=== PATIENT | male | born 1955 | race Caucasian/White ===

== ENCOUNTER 2020-04-05 07:44 | Outpatient (CLI) | payer MEDICARE, OTHER, SELFPAY | END 2020-04-05 07:45 | disposition home or self-care (01) | PROVIDERS: PCP Family Medicine Adolescent Medicine; Visit Provider Otolaryngology | DX: H90.3 Sensorineural hearing loss, bilateral (principal) | CPT/HCPCS: 92557; 92567 ==

== ENCOUNTER 2023-01-30 01:11 | Day surgery (SDC) | payer MEDICARE, OTHER, SELFPAY ==
[2023-01-19 14:20] VITALS: BMI 26.7
[2023-01-30 09:59] VITALS: BP 135/64; PULSE 95; RESP 18; TEMP 36.4; O2SAT 96
[2023-01-30] MEDS: LACTATED RINGERS 1,000 ML 150 ML IV CONT (10:10)
--- NOTE | 2023-01-30 10:18 | WPDHPUPDATE1 ---
History and Physical Update Update Date/Time: 01/30/23 10:18 History and Physical has been reviewed, including an updated exam of the patient. There are NO changes in the patient's condition. Risks, benefits, and alternatives have been discussed and questions answered. Patient agrees to proceed with procedure.
--- NOTE | 2023-01-30 10:32 | WPDANESEPPF ---
Anes - Initial Pre Proc Eval Procedure: Operation Date: 01/30/23 11:00 Proposed Procedures p Colonoscopy - Obed Guerrero MD Date/Time: 01/30/23 10:32 Surgeon: Obed Guerrero MD Pre Op Diagnosis: other specified diseases of anus and rectum Patient Data Age: 68 Gender: M Height: 1.8 m Weight: 83.8 kg Last Vital Signs Temp 97.6 F 01/30/23 09:59 Pulse 95 01/30/23 09:59 Resp 18 01/30/23 09:59 BP 135/64 01/30/23 09:59 Pulse Ox 96 01/30/23 09:59 O2 Del Method Room Air 01/30/23 09:59 Allergies Allergy/AdvReac Type Severity Reaction Status Date / Time No Known Allergies Allergy Verified 01/30/23 09:57 Home Medications Medication Instructions Recorded Confirmed Type finasteride 5 mg tablet 5 mg PO DAILY 04/05/22 01/19/23 History meloxicam 15 mg tablet 15 mg PO DAILY 04/05/22 01/19/23 History atorvastatin 20 mg tablet See Rx Instructions .Route 04/10/22 01/19/23 Rx .COMPLEX #90 tabs omeprazole 40 mg capsule,delayed 40 mg PO DAILY #90 caps 06/11/22 01/19/23 Rx release zolpidem 12.5 mg tablet,extended 12.5 mg PO QHS #90 tabs 12/25/22 01/19/23 Rx release,multiphase hydrocortisone 2.5 % topical cream 1 applic RECTAL BID #30 grams 01/22/23 01/30/23 Rx with perineal applicator Patient hx anesthesia problems: none Family hx anesthesia problems: none Results Review: All pre-operative results and documents have been reviewed as part of the pre-operative evaluation. [facility] Past Medical History Medical History (Updated 01/17/23 @ 15:36 by Valeria Aparicio APRN) Anal fissure Family hx of colon cancer Internal hemorrhoids Surgical History Surgical History History of arthroscopy of left knee (2015) Social History Social History Smoking packs per day: 2 Smoking cigarettes per day: 40.0 Years smoked: 20 Smoking pack-years: 40.00 Smoking status: Former smoker Tobacco type: cigarettes Second hand tobacco smoke exposure: No Smoking end date: 04/23/90 Alcohol intake: current Drinks per week: 8 Substance use: never Substance use type: does not use Lack of Transportation: No Lack of Food: Never True Current Housing: I Have Housing Concerned About Future Housing: No Difficulty Paying Gas/Electric Bills: No Difficulty Paying for Meds: No Currently Unemployed: No Education: High School Diploma/GED Difficulty w/ Childcare or Family Care: No Living arrangements: with family Spiritual care concerns: No Anes - Eval Final PreProcedure Day of Procedure 01/30/23 10:32 Patient weight: normal Heart: regular rate and rhythm Lungs: clear to auscultation Airway: Mallampati scale class II Neurological: alert and oriented Last oral intake: >/= 8 hours ASA classification: II Emergent: no Anesthetic plan: proceed Anesthesia type and monitoring: general GIVS and standard monitoring Results Review: All pre-operative results and documents have been reviewed as part of the pre-operative evaluation. Informed Consent: The patient's anesthetic plan and its attendant risks and benefits were discussed with the patient/family/POA. Questions were solicited and answers provided to the satisfaction of the patient/family/POA.
[2023-01-30 11:07] VITALS: BP 103/63; PULSE 80; RESP 21; O2SAT 96
[2023-01-30 11:17] VITALS: BP 113/71; PULSE 70; RESP 19; O2SAT 97
[2023-01-30 11:27] VITALS: BP 132/78; PULSE 71; RESP 22; O2SAT 98
== END 2023-01-30 11:38 | disposition home or self-care (01) ==
PROVIDERS: PCP Family Medicine Adolescent Medicine; Visit Provider Internal Medicine Gastroenterology
PROC: 0DJD8ZZ Inspection of Lower Intestinal Tract, Via Natural or Artificial Opening Endoscopic (ICD-10-PCS; CPT 45378; principal; 2023-01-30 11:00)
DX: K62.89 Other specified diseases of anus and rectum (principal); K64.8 Other hemorrhoids; K59.00 Constipation, unspecified; Z87.891 Personal history of nicotine dependence; Z80.0 Family history of malignant neoplasm of digestive organs
CPT/HCPCS: 45378; J7120

== ENCOUNTER 2024-07-28 16:34 | Emergency (ER) | payer MEDICARE, OTHER, SELFPAY ==
--- NOTE | ~2024-07-28 | CT_ITS ---
History: Blunt trauma PROCEDURE: CT head without contrast. COMPARISON: None TECHNIQUE: Axial imaging of the head performed from the skull base to the vertex without IV contrast. Sagittal a nd coronal reformations obtained. DLP: 605 mGy-cm FINDINGS: The ventricles are normal in size, shape and position. There is no mass, mass effect or midline shift. There is no abnormal extra-axial fluid collection or intracranial hemorrhage. Visualized paranasal sinuses are clear. The mastoid air cells are well aerated. No acute displaced fractures within the overlying cranium. Impression: No acute intracranial hemorrhage or suspicious mass effect. Reviewed, dictated and finalized at location A. Impression: No acute intracranial hemorrhage or suspicious mass effect.
[2024-07-28 16:48] VITALS: BP 159/80; PULSE 73; RESP 16; TEMP 36.7; O2SAT 98
[2024-07-28] MEDS: LIDO 1%/EPINEPHRINE 1:100,000 20 ML VIAL 3 ML INFILTRATE (17:57)
[2024-07-28] MEDS: TETANUS,DIPHTHERIA,AC PERTUSSIS ADULT (0.5 ML) BOOSTRIX IM (17:58)
--- NOTE | 2024-07-28 17:58 | ED_ITS ---
HPI - Head Injury General Chief complaint: Head Injury Stated complaint: Head laceration SP fall-No LOC Time Seen by Provider: 07/28/24 17:09 History of Present Illness HPI Narrative: Patient is a 6-year-old male who presents ER with a laceration to his head. Tripped and fell over his lawnmower. No LOC. no blood thinning agents. No numbness or tingling to the arms or legs. Unknown last tetanus. Related Data Home Medications ?Medication ?Instructions ?Recorded ?Confirmed ?Last Taken ?Type finasteride 5 mg tablet 5 mg PO DAILY 04/05/22 07/24/24 01/29/23 History meloxicam 15 mg tablet 15 mg PO DAILY 04/05/22 07/24/24 01/29/23 History amoxicillin 500 mg capsule 500 mg PO PRN 07/24/24 07/24/24 Unknown History Allergies Allergy/AdvReac Type Severity Reaction Status Date / Time No Known Allergies Allergy Verified 07/24/24 08:39 Review of Systems Review of Systems: All systems reviewed & are unremarkable except as noted in HPI and below Constitutional: Constitutional: Reports no additional constitutional complaints ENT: Reports system reviewed and no additional complaints, except as documented Cardiovascular: Cardiovascular: Reports no additional cardiovascular complaints Respiratory: Respiratory: Reports no additional respiratory complaints Neurologic: Reports system reviewed and no additional complaints, except as documented [facility] Past Medical History Medical History (Updated 07/28/24 @ 17:59 by Ford Escoto MD) Family hx of colon cancer Anal fissure Internal hemorrhoids Surgical History Surgical History History of arthroscopy of left knee (2015) Social History Social History Smoking packs per day: 2 Smoking cigarettes per day: 40.0 Years smoked: 20 Smoking pack-years: 40.00 Smoking status: Former smoker Tobacco type: cigarettes Second hand tobacco smoke exposure: No Smoking end date: 04/23/90 Alcohol intake: current Drinks per week: 8 Substance use: never Substance use type: does not use Lack of Transportation: No Lack of Food: Never True Current Housing: I Have Housing Concerned About Future Housing: No Difficulty Paying Gas/Electric Bills: No Difficulty Paying for Meds: No Currently Unemployed: No Education: High School Diploma/GED Difficulty w/ Childcare or Family Care: No Living arrangements: with family Spiritual care concerns: No Exam Narrative: GENERAL: Well-appearing, well-nourished, and in no acute distress. HEAD: Normocephalic, atraumatic. 1.5 cm laceration lateral of the left eyebrow. EYES: PERRL and EOMI. ENT: Mucous membranes moist. CHEST: Clear to auscultation. No respiratory distress. HEART: Regular rate and rhythm. Normal peripheral pulses. EXTREMITIES: Normal range of motion. No edema. NEURO: No focal deficits. Alert and oriented x3. PSYCH: Normal mood and affect. Course Course Emergency Course: Wound repaired. CT negative for bleed. Tetanus updated. Discharge. Vital Signs Vital signs: Vital Signs Temperature 98.1 F 07/28/24 16:48 Pulse Rate 73 07/28/24 16:48 Respiratory Rate 16 07/28/24 16:48 Blood Pressure 159/80 H 07/28/24 16:48 Pulse Oximetry 98 07/28/24 16:48 Temperature 98.1 F 07/28/24 16:48 Pulse Rate 73 07/28/24 16:48 Respiratory Rate 16 07/28/24 16:48 Blood Pressure 159/80 H 07/28/24 16:48 Pulse Oximetry 98 07/28/24 16:48 Procedures Laceration Laceration 1: Date: 07/28/24 Time: 17:50 Site: face Side (If applicable): left Size (cm): 1.5 Description: linear Depth: simple, single layer Local Anesthetic: lidocaine 1% and with epi Amount of anesthesia used (mL): 2 Pre-repair: irrigated ====== Skin Level ====== Skin layer closed with: nylon Size (cm): 5-0 Number of sutures: 3 Technique: simple, interrupted ====== Subcutaneous Layer ====== ====== Muscle Layer ====== ====== Tendon Layer ====== Discharge Plan Discharge Clinical Impression: Eyebrow laceration Patient Disposition: Home Condition: Stable Instructions: Care For Your Stitches (ED), Laceration (ED) Additional Instructions: Return the ER if you have recurrent injury, your wound is infected, or you have additional concerns. Remove your sutures in 5 days. Your tetanus shot was updated. Patient Language: Macedonian Prescriptions: No Action finasteride 5 mg tablet 5 mg PO DAILY meloxicam 15 mg tablet 15 mg PO DAILY amoxicillin 500 mg capsule 500 mg PO PRN Rx Instructions: take 4 pills 1hr prior to dental appt hydrocortisone acetate [Anusol-HC] 25 mg suppository 25 mg RECTAL BID Qty: 12 1RF zolpidem 12.5 mg tablet,ext release multiphase 12.5 mg PO QHS Qty: 90 1RF Patient Comments: takes prn only omeprazole 40 mg capsule,delayed release(DR/EC) 40 mg PO DAILY Qty: 90 1RF atorvastatin 20 mg tablet See Rx Instructions .ROUTE .COMPLEX Qty: 90 2RF Dose Instruction: TAKE 1 TABLET BY MOUTH EVERY DAY Rx Instructions: TAKE 1 TABLET BY MOUTH EVERY DAY Follow-up/Referrals: Art Randle MD [Primary Care Provider] - 1 Week
--- OUTSIDE RECORDS SUMMARY | 2024-07-28 18:04 | XMS_ITS | Clinical Summary ---
Author Organization [facility] Address [address] [place] [address] Care Team Providers Care Structural Steel Erection Supervisor Name Role Phone Art Randle MD Primary Care Provider + Art Randle MD Unavailable [phone] Romeo Nunes MD Unavailable [phone] Source Comments [facility],non-owned Affiliates and Associated Physician Practices is amultiple site organization consisting of ambulatory clinics and hospital sitesin [place], [place], [place] and [place]. This disclosure is being madepursuant to the Care Everywhere program and may not contain all information available regarding this patient. Last updated 18.[facility] Allergies No known active allergies Medications * Be aware that medications may not be up to date on this document. Alwaysverify current medications with the patient. Medication Sig Dispensed Refills Start Date End Date Status atorvastatin (Lipitor) 20 MG tabletIndications:H yperlipidemia Take 1 (one) tablet by mouth once daily Reasons: High Amount of Fats in the Blood 04/21/2023 Active finasteride (Proscar) 5 MG tabletIndications:B enign Prostatic Hypertrophy Reasons: Benign Enlargement of Prostate 06/03/2023 Active zolpidem CR (Ambien Cr) 12.5 MG tabletIndications:I nsomnia Take 1 (one) tablet by mouth nightly as needed Reasons: Trouble Sleeping 01/07/2023 Active triamcinolone acetonide (Kenalog) 0.1 % creamIndications:De rmatitis APPLY TO AFFECTED AREA DIRECTED TWICE A DAY 03/12/2023 Active cetirizine (ZyrTEC) 10 MG tabletIndications:S easonal Allergic Rhinitis Take 1 (one) tablet by mouth once daily Take at night Reasons: Hayfever Active amoxicillin (Amoxil) 500 MG capsule TAKE 4 PILLS 1HR PRIOR TO DENTAL APPOINTMENT 12/18/2023 Active acetaminophen (Tylenol) 500 MG capsule Take 2 (two) capsules by mouth 3 times daily Take for ten days then as needed. 02/27/2024 Active aspirin (Aspirin) 81 MG chew tablet Chew and Swallow 1 (one) tablet by mouth 2 times daily for 42 days for blood clot prevention. 84 tablet 02/27/2024 Active oxyCODONE, immediate release, (Roxicodone) 10 MG tabletIndications:P ostoperative pain Take 0.5 (one-half) tablet to 1 (one) tablet by mouth every 4 hours as needed for Pain (PAIN) 42 tablet 02/28/2024 Active omeprazole (PriLOSEC) 20 MG capsule Take 1 (one) capsule by mouth daily before breakfast for 42 days 02/28/2024 Active meloxicam (Mobic) 15 MG tablet TAKE 1 TABLET BY MOUTH EVERY DAY 30 tablet 5 05/15/2024 Active Active Problems Problem Noted Date Diagnosed Date Arthritis of knee 07/09/2023 Primary osteoarthritis of left knee 01/12/2021 Sciatica of right side 01/12/2021 Acute medial meniscal tear, right, initial encou nter 11/04/2020 Overview (01/12/2021): Last Assessment & Plan: We discussed the risks, benefits and alternatives. There are only 3 things to do for meniscal tears. Nothing, see if it gets better on its own. Conservative treatment of nonsteroidal anti-inflammatories, physical therapy, steroid injection, activity modification, TENS unit and bracing. Finally, diagnostic and operative arthroscopy with repair or partial meniscectomy. Start meloxicam. Physician directed exercises given If no significant improvement consider MRI Patient would like to avoid steroids Encounters Date Type Department Care Team Description 05/14/2024 Refill [facility] [id number] [facility], [address] [phone] Romeo Nunes MD Refill Request from Last 3 Months Social History Tobacco Use Types Packs/Day Years Used Date Smoking Tobacco: Former Cigarettes Smokeless Tobacco: Never Tobacco Cessation:Counseling Given: Not Answered Alcohol Use Standard Drinks/Week Comments Yes 0 (1 standard drink = 0.6 oz pur e alcohol) 8 drinks over a week period OASIS D0700: Social Isolation Answer Da te Recorded Frequency of experiencing loneliness or isolatio n Never 07/26/2023 OASIS A1250: Transportation Answer Date Recorded Lack of Transportation (Medical) No 07/26/2023 Lack of Transportation (Non-Medical) No 07/26/2023 Patient Unable or Declines to Respond No 07/26/2023 OASIS B1300: Health Literacy Answer Jonah e Recorded Frequency of needing help to read materials from doctor or pharmacy Never 07/26/2023 AUDIT-C Answer Date Recorded Q1: How often do you have a drink containing alcohol? Monthly or less 02/27/2024 Q2: How many drinks containi ng alcohol do you have on a typical day when you are drinking? Patient does not drink Q3: How often do you have si x or more drinks on one occasion? Never 02/27/2024 Overall Financial Resource Strain (CARDIA) Answe r Date Recorded How hard is it for you to pa y for the very basics like food, housing, medical care, and heating? Not hard at all 02/27/2024 PHQ-2 Answer Date Recorded Patient Health Questionnaire-2 Score 0 04/01/2024 [facility] - Occupational Stress Questionnaire Answer Date Recorded Do you feel stress - tense, restless, nervous, or anxious, or unable to sleep at night because your mind is troubled all the time - these days? Not at all 02/27/2024 Hunger Vital Sign Answer Date Recorded Within the past 12 months, y ou worried that your food would run out before you got the money to buy more. Never true 02/27/20 24 Within the past 12 months, t he food you bought just didn't last and you didn't have money to get more. Never true 02/27/2024 PRAPARE - Transportation Answer Date Re corded In the past 12 months, has l ack of transportation kept you from medical appointments or from getting medications? No 09/2023 In the past 12 months, has l ack of transportation kept you from meetings, work, or from getting things needed for daily living? No 02/27/2024 Housing Stability Vital Sign Answer Jonah e Recorded In the last 12 months, was t here a time when you were not able to pay the mortgage or rent on time? No 02/27/2024 In the past 12 months, how m any times have you moved where you were living? 1 02/27/2024 At any time in the [facility], were you homeless or living in a custodial (including now)? No 02/27/2024 Sex and Gender Information Value Date Recorded Sex Assigned at Male 06/07/2023 12:53 PM PLANT OPERATIONS COORDINATOR Gender Identity Not on file Sexual Orientation Not on file Last Filed Vital Signs Vital Sign Reading Time Taken Comments Blood Pressure 147/55 02/28/2024 8:40 AM PLANT OPERATIONS COORDINATOR Pulse 62 02/28/2024 8:40 AM PLANT OPERATIONS COORDINATOR Temperature 36.6 C (97.9 F) 02/28/2024 7:55 AM PLANT OPERATIONS COORDINATOR Respiratory Rate 18 02/28/2024 3:49 AM PLANT OPERATIONS COORDINATOR Oxygen Saturation 100% 02/28/2024 8:40 AM PLANT OPERATIONS COORDINATOR Inhaled Oxygen Concentration - - Weight 84.3 kg (185 lb 12.8 oz) 02/27/2024 6:00 AM PLANT OPERATIONS COORDINATOR Height 180.3 cm (5' 11 ) 02/27/2024 6:00 AM PLANT OPERATIONS COORDINATOR Body Mass Index 25.91 02/27/2024 6:00 AM PLANT OPERATIONS COORDINATOR Plan of Treatment Health Maintenance Due Date Last Done Comments COLOGUARD (AGES 45-75) - COL ON CA SCREENING 1954 COLON MONITORING 1954 COLONOSCOPY - COLON CA SCREENING 1954 CT COLONOGRAPHY - COLON CA SCREENING 1954 Colorectal Cancer Screening 1954 FIT - COLON CA SCREENING 1954 FLEX SIG - COLON CA SCREENING 1954 MEDICARE AWV 12 MONTHS 1954 HEPATITIS C SCREENING 01/06/1972 DTAP/TDAP/TD VACCINES (1 - Tdap) 1973 PNEUMOCOCCAL VACCINE 50+ (1 of 1 - PCV) 01/11/2004 ZOSTER VACCINE (1 of 2) 01/11/2004 AAA SCREENING 2019 COVID-19 VACCINE ( - 2023-2 5 season) 2023 DEPRESSION SCREENING 04/23/2024 11/20/2023 INFLUENZA VACCINE (Season Ended) 2024 SCREENING FOR DIABETES 01/23/2027 01/24/2024 Respiratory Syncytial Virus (RSV) Vaccine Pt: or over 60 yrs (1 - 1-dose 75+ series) 2029 HEPATITIS B VACCINE Aged Out No longe r eligible based on patient's age to complete this topic HIB VACCINE Aged Out No longer eligi ble based on patient's age to complete this topic HPV VACCINE Aged Out No longer eligi ble based on patient's age to complete this topic MENINGOCOCCAL (Group B) VACC INE SHARED DECISION-MAKING Aged Out No longer eligibl e based on patient's age to complete this topic MENINGOCOCCAL GROUPS A/C/Y/W VACCINE Aged Out No longer eligible b ased on patient's age to complete this topic Medical Devices Implanted Type Area Guest Service Team Leader Device Identifier Shelf Expiration Date Model / Serial / Lot Cmnt Bone Plc R 40gm Grn Implanted:Qty: 1 on 07/09/2023 by Romeo Nunes MD at [facility] Right: Knee [employer] 11/20/2025 [id number] / / [id number] Cmnt Bone Plc R 40gm Grn Implanted:Qty: 1 on 07/09/2023 by Romeo Nunes MD at [facility] Right: Knee [employer] 11/20/2025 [id number] / / [id number] Tray Tib 79mm Kn Cocr I Beam Implanted:Qty: 1 on 07/09/2023 by Romeo Nunes MD at [facility] Right: Knee [employer] 04/14/2033 [id number] / / [id number] Cmpnt Fem Kn Rt Cr Cmnt Prm Vngrd Intlk 70mm Implanted:Qty: 1 on 07/09/2023 by Romeo Nunes MD at [facility] Right: Knee [employer] 04/03/2033 [id number] / / [id number] Cmpnt Ptlr Std 31mm 3 Pg Kn Ser A Implanted:Qty: 1 on 07/09/2023 by Romeo Nunes MD at [facility] Right: Knee [employer] 04/03/2028 [id number] / / [id number] Brng [id number] Vngrd Arcm Kn Ant Stab Implanted:Qty: 1 on 07/09/2023 by Romeo Nunes MD at [facility] Right: Knee [employer] 04/04/2028 [id number] / / [id number] Cmpnt Ptlr Std 31mm 3 Pg Kn Ser A Implanted:Qty: 1 on 02/27/2024 by Romeo Nunes MD at [facility] Left: Knee [employer] 01/04/2028 [id number] / / [id number] Brng [id number] Vngrd Vivacit-E Kn Ant Stab Implanted:Qty: 1 on 02/27/2024 by Romeo Nunes MD at [facility] Left: Knee [employer] 08/14/2028 [id number] / / [id number] Cmnt Bone Plc R 40gm Grn Implanted:Qty: 2 on 02/27/2024 by Romeo Nunes MD at [facility] Left: Knee [employer] 04/22/2026 [id number] / / [id number] Cmpnt Fem Kn Lt Cr Cmnt Prm Vngrd Intlk 72.5 Mm Implanted:Qty: 1 on 02/27/2024 by Romeo Nunes MD at [facility] Left: Knee [employer] 11/11/2033 [id number] / / [id number] Tray Tib 79mm Kn Cocr I Beam Implanted:Qty: 1 on 02/27/2024 by Romeo Nunes MD at [facility] Left: Knee [employer] 01/02/2034 [id number] / / [id number] Procedures Procedure Name Priority Date/Time Associated Diagnosis Comments COMPREHENSIVE METABOLIC PANEL STAT 01/24/2024 8:30 AM CDT Preoperative examination from Last 3 Months or Most Recently Relevant to Health Maintenance Results * (ABNORMAL) COMPREHENSIVE METABOLIC PANEL (01/24/2024 8:30 AM CDT) [facility] Glucose 97 70 - 99 mg/dL 01/24/2024 8:59 AM CDT [facility] Sodium 134(L) 136 - 145 mmol/L 01/24/2024 8:59 AM CDT [facility] Potassium 4.1 3.5 - 5.1 mmol/L 01/24/2024 8:59 AM CDT [facility] Chloride 107 98 - 107 mmol/L 01/24/2024 8:59 AM CDT [facility] CO2 26 22 - 29 mmol/L 01/24/2024 8:59 AM CDT [facility] Calcium 9.4 8.4 - 10.4 mg/dL 01/24/2024 8:59 AM CDT [facility] Anion Gap 1(L) 6 - 16 mmol/L 01/24/2024 8:59 AM CDT [facility] BUN 13 7 - 26 mg/dL 01/24/2024 8:59 AM CDT [facility] Creatinine 0.87 0.72 - 1.25 mg/dL 01/24/2024 8:59 AM CDT [facility] Alkaline Phosphatase 53 40 - 150 U/L 01/24/2024 8:59 AM CDT [facility] ALT 17 0 - 55 U/L 01/24/2024 8:59 AM CDT [facility] AST 18 5 - 34 U/L 01/24/2024 8:59 AM CDT [facility] Protein Total 6.8 6.4 - 8.3 gm/dL 01/24/2024 8:59 AM CDT [facility] Albumin 3.8 3.4 - 5.0 gm/dL 01/24/2024 8:59 AM CDT [facility] Bilirubin Total 1.2 0.2 - 1.2 mg/dL 01/24/2024 8:59 AM CDT [facility] eGFR by CKD-EPI >90 >=90 mL/min/1.7 3 m2 01/24/2024 8:59 AM CDT [facility] Blood BLOOD SPECIMEN / Unknown Venipuncture / Unknown 01/24/2024 8:30 AM CDT 01/24/2024 8:34 AM CDT Shayla Almanzar CAR CLERK PULLMAN-PUBLIC HEALTH DIRECTOR LAB - CHEMISTRY O RDERABLES [facility] [address] [place] [address] from Last 3 Months or Most Recently Relevant to Health Maintenance Advance Directives * Full Code (Latest Code Status on File) Date Activated Date Inactivated Comments 02/27/2024 9:44 AM 02/28/2024 12:58 PM * Full Code Date Activated Date Inactivated Comments 07/11/2023 10:37 AM 02/27/2024 5:29 AM To update t he patient's code status, place a code status order. Do not modify or discontinue any currently active code status orders. * Full Code Date Activated Date Inactivated Comments 07/09/2023 12:23 PM 07/10/2023 12:52 PM Care Teams Structural Steel Erection Supervisor Relationship Specialty Start Date End Date Art Randle MD [address] [address] PCP - General 01/21/18 Art Randle MD [address] [facility] [address] [place] [address] Family Medicine 01/21/18 [place] [address] [facility] [address] [place] [address] Orthopedic Surgery 05/15/16
--- OUTSIDE RECORDS SUMMARY | 2024-07-28 18:04 | XMS_ITS | Encounter Summary ---
Author Organization [facility] Facility Care Team Providers Care Wound Care Specialist Name Role Phone Art Randle MD Primary Care Prov ider Encounter Details Date Type Department Care Team (Latest Contact Info) Description 01/19/2016 Orders Only [facility] ProviderAjit MD [address] [place] [id number] Social History Tobacco Use Types Packs/Day Years Used Date Smoking Tobacco: Former Cigarettes Q uit: 04/23/1992 Alcohol Use Standard Drinks/Week Comments Yes 0 (1 standard drink = 0.6 oz pur e alcohol) Sex and Gender Information Value Date Recorded Sex Assigned at Not on file Legal Sex 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 Historical Provider Final Res ult documented in this encounter Visit Diagnoses Not on filedocumented in this encounter Care Teams Wound Care Specialist Relationship Specialty Start Date End Date Art Randle MD [address] [place] [address] PCP - General 09/18/12 documented as of this encounter
--- OUTSIDE RECORDS SUMMARY | 2024-07-28 18:04 | XMS_ITS | Encounter Summary ---
Author Organization [facility] Address [address] [place] [address] Care Team Providers Care Clinical Admissions Manager Name Role Phone Art Randle MD Primary Care Provider + Art Randle MD Unavailable [phone] Romeo Nunes MD Unavailable [phone] Encounter Details Date Type Department Care Team (Late st Contact Info) Description 12/19/2022 Lab Requisition [facility] - DermPath Lab [address] [facility], [place] [address] Ester Collazo DO [address] [facility] 3 [place] [address] Social History Tobacco Use Types Packs/Day Years Used Date Smoking Tobacco: Never Assessed Sex and Gender Information Value Date Recorded Sex Assigned at Male 06/07/2023 12:53 PM KAIAKO KURA TUARUA Gender Identity Not on file Sexual Orientation Not on file documented as of this encounter Plan of Treatment Not on file documented as of this encounter Procedures Procedure Name Priority Date/Time Associated Diagnosis Comments DERMATOPATHOLOGY Routine 12/19/2022 8:15 AM CDT documented in this encounter Results * DERMATOPATHOLOGY (12/19/2022 8:15 AM CDT) Case Report Dermatopathology Report Case: [id number] Authorizing Provider: Ester Collazo DO Collected: 12/19/2022 08:15 AM Ordering Location: [facility] DermPath Lab Received: 12/19/2022 12:48 PM Pathologist: Brigitte Mead MD Specimen: Skin, right cheek 12:39 PM CDT DERMATOPATHOLOGY LABORATORY Final Diagnosis Specimen A. SKIN, right cheek: SQUAMOUS CELL CARCINOMA, WELL DIFFERENTIATED (C44.329) 12:39 PM CDT DERMATOPATHOLOGY LABORATORY Clinical History R/O NMSC 12:39 PM CDT DERMATOPATHOLOGY LABORATORY Gross Description Specimen A: Received is one formalin filled container labeled with the patient's name and designated right cheek. The specimen consists of a shave biopsy measuring 3x3x1 mm. Jar 0. 12:39 PM CDT DERMATOPATHOLOGY LABORATORY Microscopic Description Specimen A. SKIN, right cheek: Arising in the epidermis and extending into the dermis there are irregularly shaped aggregates of keratinocytes showing evidence of premature cornification. 12:39 PM CDT DERMATOPATHOLOGY LABORATORY Disclaimer An external and internal positive and negative controls are appropriate for the histochemical, immunohistochemical and immunofluorescence stain(s) in this case (if any), except where stated explicitly. The performance characteristics of the stain(s) cited in this report were developed and its performance characteristic determined by the Dermatopathology Laboratory at [facility], directed by Dr. Mari Cartagena. These tests need not be, and therefore are not, approved by the [place] Food and Drug Administration. The tests are used for clinical purposes. Billing Codes Specimen Charges Stain Charges 00177 1 12:39 PM CDT DERMATOPATHOLOGY LABORATORY Embedded Images 12:39 PM CDT DERMATOPATHOLOGY LABORATORY Pathology/Cytolo gy TISSUE SPECIMEN FROM SKIN / Unknown 12/19/2022 8:15 AM CDT 12/19/2022 12:48 PM CDT Ester Collazo DO LAB - PATHOLOGY/C YTOLOGY ORDERABLES DERMATOPATHOLOGY LABORATORY [facility] - Department of Dermatology [address], [address] [phone] documented in this encounter Visit Diagnoses Not on filedocumented in this encounter Care Teams Clinical Admissions Manager Relationship Specialty Start Date End Date Art Randle MD [address] [address] PCP - General 01/21/18 Art Randle MD [address] [address] Family Medicine 01/21/18 [place] [address] [facility] [address] [place] [address] Orthopedic Surgery 05/15/16 documented as of this encounter
--- OUTSIDE RECORDS SUMMARY | 2024-07-28 18:04 | XMS_ITS | Referral Summary ---
Author Organization [facility] Address [address] [place] [address] Care Team Providers Care Inspector Packer Glass Container Name Role Phone Art Randle MD Primary Care Prov ider Allergies No known active allergies Medications dutasteride (AVODART) 0.5 mg capsule Take 0.5 mg by mouth daily 0 Active rosuvastatin (CRESTOR) 10 mg tablet TK 1 T PO QD 0 Active acetaminophen ER (Tylenol Arthritis Pain) 650 mg 8 hr tablet Rx: Tylenol Arthritis Pain Active methylPREDNISol one (Medrol, Lazaro,) 4 mg Dosepack Take as directed on package 1 packet 0 Active Active Problems Problem Noted Date Diagnosed Date Primary osteoarthritis of left knee 01/20/2020 Assessment & Plan (01/20/2020 9:12 PM CDT): We discussed the risks, benefits and alternatives of treatment options for osteoarthritis of the knee. From least invasive to most invasive: The only thing to slow the progression of osteoarthritis is weight loss. For every pound lost 4 to 6 pounds of stress is relieved from the knee. Formal physical therapy to help with flexion, extension, mobility and strength. Unloading braces to unload the affected side. The possibility of TENs unit to control pain and swelling. Nonsteroidal anti-inflammatories with the potential of cardiac and GI upset. Steroid and Visco supplement injection. And eventual total knee arthroplasty. After going over the risks, benefits and alternatives patient wants to proceed with Monovisc injection today as a gave him significant relief over the last 2 years. We did discussed the fact that it probably will not last that long as arthritis is a progressive disease. Follow-up as needed. Patient understands that I will not be year after March 23 and will call to find replacement physician when needed. BMI 27.0-27.9,adult 01/20/2020 Assessment & Plan (01/20/2020 9:13 PM CDT): We discussed the adverse effects of extra weight on osteoarthritis. The only thing proven to slow the progression of osteoarthritis as weight loss. Every 1 lb lost, relieves 4-6 lb of stress across the knee. Continue weight loss through diet and exercise. Consider low carbohydrate diet. Abnormal cardiovascular stress test 09/18/2012 Overview (07/26/2016): Abnormal stress test Acute coronary syndrome 09/18/2012 Overview (07/28/2016): ACS (acute coronary syndrome) Pure hypercholesterolemia 09/18/2012 Overview (07/28/2016): PURE HYPERCHOLESTEROLEM Precordial pain 09/18/2012 Overview (07/28/2016): PRECORDIAL PAIN Social History Tobacco Use Types Packs/Day Years Used Date Smoking Tobacco: Former Cigarettes Q uit: 04/23/1992 Alcohol Use Standard Drinks/Week Comments Yes 0 (1 standard drink = 0.6 oz pur e alcohol) Personal Safety Answer Date Recorded Getting School Help Needed Not on file 07/06 Sex and Gender Information Value Date Recorded Sex Assigned at Not on file 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 Gender Identity Not on file Sexual Orientation Not on file Last Filed Vital Signs Vital Sign Reading Time Taken Comments Blood Pressure 128/72 01/20/2016 9:27 AM CDT Pulse 55 01/20/2016 9:27 AM CDT Temperature 36.4 C (97.6 F) 01/20/2016 9:27 AM CDT Respiratory Rate - - Oxygen Saturation 99% 01/20/2016 9:27 AM CDT Inhaled Oxygen Concentration - - Weight 90.3 kg (199 lb) 01/19/2020 9:39 AM CDT Height 180.3 cm (5' 11 ) 01/19/2020 9:39 AM CDT Body Mass Index 27.75 01/19/2020 9:39 AM CDT Plan of Treatment Not on file Insurance MEDICARE [employer] [facility] MEDICARE Care Teams Inspector Packer Glass Container Relationship Specialty Start Date End Date Art Randle MD [address] [place] [address] PCP - General 09/18/12
--- OUTSIDE RECORDS SUMMARY | 2024-07-28 18:04 | XMS_ITS ---
Author Name JerArt ventura Address [address] [facility] [address] [place] [address] Phone [phone] [facility] [place] Address [address] [place] [address] Phone [phone] Care Team Providers Care Salesperson Automobiles Name Role Phone Art Randle Unavailable Romeo Nunes Unavailable Functional Status No Results Mental Status No Results Allergies and Intolerances Name Onset Date Reaction Severity No Known Allergies (Allergy) SunFeb 27 13:08:00 EST 2023 Encounters Program Name Primary Diagnosis Admission Date/Time Dis charge Date/Time Home Care SunFeb 27 19:00 :00 2023Mar 17 18:59:00 EST 2023 Medications Medication Directions Start Date End Date acetaminophen 500 mg tablet 2 TAB TABLET Oral Every 8 Hours EVERY 8 HRS X 10 DAYS, THEN PRN MILD PAIN SunFeb 28 01:00:00 EST 2023Mar 17:00:00 EST 2023 omeprazole 40 mg capsule,delayed release 1 TAB CAPSULE,DELAYED RELEASE (ENTERIC COATED) Oral Every 1 Day SunFeb 28:00:00 2023Mar 17:00:00 EST 2023 Aspir-Low 81 mg tablet,delayed release 1 TAB TABLET, DELAYED RELEASE (ENTERIC COATED) Oral 2 Times Daily for 42 Days SunFeb 28:00:00 2023Mar 17:00:00 EST 2023 atorvastatin 20 mg tablet 1 TAB TABLET O ral Every 1 Day SunFeb 28:00:00 2023Mar 17 01:00:00 EST 2023 cetirizine 10 mg tablet 1 TAB TABLET Ora l Every 1 Day SunFeb 28:00:00 2023Mar 17 01:00:00 EST 2023 finasteride 5 mg tablet 1 TAB TABLET Ora l Every 1 Day SunFeb 28 01:00:00 EST 2023Mar 17 01:00:00 EST 2023 meloxicam 15 mg tablet 1 TAB TABLET Oral Every 1 Day SunFeb 28:00:00 EST 2023Mar 17 01:00:00 EST 2023 zolpidem ER 12.5 mg tablet,extended release,multiphase 1 TAB TABLET, EXTENDED RELEASE MULTIPHASE Oral PRN Hour Of Sleep PRN INSOMNIA SunFeb 28:00:00 EST 2023Mar 17 01:00:00 EST 2023 Miralax 17 gram oral powder packet 17 GRAM POWDER IN PACKET (EA) Oral PRN Every 1 Day PRN CONSTIPATION SunFeb 28:00:00 EST 2023Mar 17:00:00 EST 2023 oxyCODONE 10 mg tablet 0.5- 1 TAB TABLET Oral PRN Every 4 Hours PRN MODERATE OR SEVERE PAIN SunFeb 28 01:00:00 EST 2023Mar 17 01:00:00 EST 2023 Problems Active Concerns * Aftercare following joint replacement surgery* Code: * Start Date: SunFeb 27 00:00:00 EST 2023 * End Date: * Text: * Personal history of nicotine dependence* Code: * Start Date: SunFeb 28 00:00:00 EST 2023 * End Date: * Text: * 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 (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 therapy* Code: * Start Date: SunFeb 28 00:00:00 EST 2023 * End Date: * Text: * retirement (current) use of aspirin* Code: * Start Date: SunFeb 28 00:00:00 EST 2023 * End Date: * Text: * Need for assistance with personal care* Code: * Start Date: SunFeb 28 00:00:00 EST 2023 * End Date: * Text: * Other reduced mobility* Code: * Start Date: SunFeb 28 00:00:00 EST 2023 * End Date: * Text: * Allergic rhinitis due to pollen* Code: * Start Date: SunFeb 28 00:00:00 EST 2023 * End Date: * Text: * Gastro-esophageal reflux disease without esophagitis* Code: * Start Date: SunFeb 28 00:00:00 EST 2023 * End Date: * Text: * Benign prostatic hyperplasia without lower urinary tract symptoms* Code: * Start Date: SunFeb 28 00:00:00 2023 * End Date: * Text: * Hyperlipidemia, unspecified* Code: * Start Date: SunFeb 28 00:00:00 2023 * End Date: * Text: * Presence of left artificial knee joint* Code: * Start Date: SunFeb 28 00:00:00 2023 * End Date: * Text: Reason for Referral
--- OUTSIDE RECORDS SUMMARY | 2024-07-28 18:04 | XMS_ITS | Continuity of Care Document ---
Author Organization [facility] Address [address] [place] [address] Phone Care Team Providers Care Wool Hat Finisher Name Role Phone Ashby OD, Obed Unavailable Unavailable Procedures Procedure Date Eye Exam & Treatment Refraction Advance Directives Directive Yes / No Effective Date File Name No Information Encounters Encounter Description Practice Location Reason(s) For Visit Diagnoses Date Provider Providers Copied on Encounter [facility], [id number] [place] [address] [address], [place], [place], [id number], [place] tel:[phone] [facility] No Information 2-200 9 Ashby OD Obed. [address] , [address], [place], [address], [place]. tel:[phone] Family History Family Member Type Diagnosis Age At Onset No Information Payers Payer name Insurance type Covered republican ID Authoriza tion(s) BCBS [place] Out [place] [id number] Social History Type Description Quantity Date Captured Comments Sex Male Smoking Status No Information Chief Complaint And Reason For Visit No Information Reason For Referral Reason For Referral No Information History Of Present Illness Encounter Date Complaint History Of Prese nt Illness No Information Functional Status Date Functional Assessmen t No Information Instructions Date Instruction Additional Infor mation No Information Assessments Type Assessment Date No Information Patient Care Teams Name Effective Dates (start - stop) Status Members No Information
--- OUTSIDE RECORDS SUMMARY | 2024-07-28 18:04 | XMS_ITS ---
Author Name Art Randle Address [address] [facility] [address] [place] [address] Phone [phone] [facility] ice Address [address] [place] [address] Phone [phone] Care Team Providers Care Senior Policy Associate Name Role Phone Art Randle Unavailable [phone] Rmoeo Nunes Unavailable [phone] Functional Status Mental Status Allergies and Intolerances Encounters Medications Problems Reason for Referral
--- OUTSIDE RECORDS SUMMARY | 2024-07-28 18:04 | XMS_ITS | Encounter Summary ---
Author Organization [facility] Address [address] [place] [address] Care Team Providers Care Cartoon Designer Name Role Phone Art Randle MD Primary Care Provider + Art Randle MD Unavailable [phone] Romeo Nunes MD Unavailable [phone] Encounter Details Date Type Department Care Team (Late st Contact Info) Description 02/05/2023 Lab Requisition [facility] - DermPath Lab [address] 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 Gender Identity Not on file Sexual Orientation Not on file documented as of this encounter Plan of Treatment Not on file documented as of this encounter Procedures Procedure Name Priority Date/Time Associated Diagnosis Comments DERMATOPATHOLOGY Routine 02/05/2023 8:06 AM CDT documented in this encounter Results * DERMATOPATHOLOGY (02/05/2023 8:06 AM CDT) Case Report Dermatopathology Report Case: [id number] Authorizing Provider: Shauna Smyth MD Collected: 02/05/2023 08:06 AM Ordering Location: [facility] DermPath Lab Received: 02/05/2023 03:13 PM Pathologist: Brigitte Mead MD Specimen: Skin, right arm 11:25 AM T DERMATOPATHOLOGY LABORATORY Final Diagnosis Specimen A. SKIN, right arm: SPONGIOTIC DERMATITIS WITH RARE EOSINOPHILS (L30.8) HEALING SKIN CHANGES (L90.5) (see microscopic description and comment) (see direct immunofluorescence results) ([id number]) 11:25 AM T DERMATOPATHOLOGY LABORATORY Clinical History A: Urticarial vs ACD vs BP 11:25 AM CDT DERMATOPATHOLOGY LABORATORY Gross Description Specimen A: Received is one formalin filled container labeled with the patient's name and designated right arm. The specimen consists of a punch biopsy measuring 4x4x6 mm. Jar 0. 11:25 AM CDT DERMATOPATHOLOGY LABORATORY Microscopic Description Specimen A. SKIN, right arm: There is focal parakeratosis and spongiosis. In the dermis there is a mainly superficial perivascular lymphohistiocytic inflammatory infiltrate with rare eosinophils. There is epidermal hyperplasia beneath which there are vascular proliferation, fibroblasts, and an edematous stroma. See direct immunofluorescence results. COMMENT: The histological differential diagnosis includes a contact dermatitis and an eczematous drug eruption. 11:25 AM T DERMATOPATHOLOGY LABORATORY Disclaimer An external and internal positive and negative controls are appropriate for the histochemical, immunohistochemical and immunofluorescence stain(s) in this case (if any), except where stated explicitly. The performance characteristics of the stain(s) cited in this report were developed and its performance characteristic determined by the Dermatopathology Laboratory at [facility], directed by Dr. Mari Cartagena. These tests need not be, and therefore are not, approved by the [place] Food and Drug Administration. The tests are used for clinical purposes. Billing Codes Specimen Charges Stain Charges 62482 1 11:25 AM CDT DERMATOPATHOLOGY LABORATORY Embedded Images 11:25 AM CDT DERMATOPATHOLOGY LABORATORY Pathology/Cytolo gy TISSUE SPECIMEN FROM SKIN / Unknown 02/05/2023 8:06 AM CDT 02/05/2023 3:13 PM CDT Shauna Smyth MD LAB - PATHOLOGY/CYTO LOGY ORDERABLES DERMATOPATHOLOGY LABORATORY [facility] - Department of Dermatology [address], [address] [phone] documented in this encounter Visit Diagnoses Not on filedocumented in this encounter Care Teams Cartoon Designer Relationship Specialty Start Date End Date Art Randle MD [address] [address] PCP - General 01/21/18 Art Randle MD [address] [address] Family Medicine 01/21/18 [place] [address] [address] Orthopedic Surgery 05/15/16 documented as of this encounter
--- OUTSIDE RECORDS SUMMARY | 2024-07-28 18:04 | XMS_ITS | Encounter Summary ---
Author Organization [facility] Address [address] [address] Care Team Providers Care Board Of Directors Name Role Phone Art Randle MD Primary Care Provider + Art Randle MD Unavailable [phone] Romeo Nunes MD Unavailable [phone] Encounter Details Date Type Department Care Team (Late st Contact Info) Description 02/05/2023 Lab Requisition [facility] - DermPath Lab [address] [facility], [place] [address] Shauna Smyth MD [address] [facility] 3 [place] [address] Social History Tobacco Use Types Packs/Day Years Used Date Smoking Tobacco: Never Assessed Sex and Gender Information Value Date Recorded Sex Assigned at Male 06/07/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 Gender Identity Not on file Sexual Orientation Not on file documented as of this encounter Plan of Treatment Not on file documented as of this encounter Procedures Procedure Name Priority Date/Time Associated Diagnosis Comments IMMUNOFLUORESCENT STUDY DERM Routine 02/05/2023 12:00 AM CDT documented in this encounter Results * IMMUNOFLUORESCENT STUDY DERM (02/05/2023 12:00 AM CDT) Case Report Dermatopathol ogy Report Case: [id number] Authorizing Provider: Shauna Smyth MD Collected: 02/05/2023 12:00 AM Ordering Location: [facility] DermPath Lab Received: 02/05/2023 03:15 PM Pathologist: Brigitte Mead MD Specimen: Skin, right arm 11:26 AM [facility] DERMATOPATHOLOGY LABORATORY Final Diagnosis Specimen A. SKIN, right arm: TRACE LINEAR GRANULAR BASEMENT MEMBRANE ZONE POSITIVITY WITH C3 (L98.9) (see microscopic description and comment) (see fixed tissue results) ([id number]) 11:26 AM [facility] DERMATOPATHOLOGY LABORATORY Direct Immunofluorescence Report - Specimen A Specimen A IgA IgM IgG C3 CollV Fibrinogen Epidermis Negative Negative Negative Negative Negative Negative Basement Membrane Negative Negative Negative Trace Linear granular 2+ Negative Vessels Negative Negative Negative Negative 2+ Negative Interstitium Negative Negative Negative Negative Negative Non specific 11:26 AM T DERMATOPATHOLOGY LABORATORY Clinical History Urticarial vs ACD vs BP 11:26 AM T DERMATOPATHOLOGY LABORATORY Gross Description Specimen A: Received is one Ghulam's media filled container labeled with the patient's name and designated right arm. The specimen consists of a punch biopsy measuring 4x4x6 mm. The specimen is submitted in whole for direct immunofluores cence testing. 11:26 AM [facility] DERMATOPATHOLOGY LABORATORY Microscopic Description Specimen A. SKIN, right arm: Controls were run in parallel. There is trace linear granular C3 at the dermal-epider mal junction. Staining is negative with IgA, IgM, and IgG. Collagen IV stains the basement membrane zone and vessels. Fibrinogen shows non-specific staining. See fixed tissue results. COMMENT: This is a common and non-specific staining pattern, which can be seen in chronically sun exposed skin. 11:26 AM [facility] DERMATOPATHOLOGY LABORATORY Disclaimer An external and internal positive and negative controls are appropriate for the histochemical , immunohistoch emical and immunofluores cence stain(s) in this case (if any), except where stated explicitly. The performance characteristi cs of the stain(s) cited in this report were developed and its performance characteristi c determined by the Dermatopathol ogy Laboratory at [facility], directed by Dr. Mari Cartagena. These tests need not be, and therefore are not, approved by the [place] Food and Drug Administratio n. The tests are used for clinical purposes. Billing Codes Specimen Charges Stain Charges 43097 [address]09[address]707 13098 11502 22524 1 1 1 1 1 1 3 11:26 AM CDT DERMATOPATHOLOGY LABORATORY Embedded Images 3 11:26 AM CDT DERMATOPATHOLOGY LABORATORY Pathology/Cytolog y TISSUE SPECIMEN FROM SKIN / Unknown 02/05/2023 02/05/2023 3:15 PM CDT Shauna Smyth MD LAB - PATHOLOGY/CYTO LOGY ORDERABLES DERMATOPATHOLOGY LABORATORY [facility] - Department of Dermatology [facility] Medicine [address] [place] [address], [address] [phone] documented in this encounter Visit Diagnoses Not on filedocumented in this encounter Care Teams Board Of Directors Relationship Specialty Start Date End Date Art Randle MD [address] [place] [address] PCP - General 01/21/18 Art Randle MD [address] [place] [address] Family Medicine 01/21/18 [place] [address] [facility] [address] [place] [address] [id number] Orthopedic Surgery 05/15/16 documented as of this encounter
--- OUTSIDE RECORDS SUMMARY | 2024-07-28 18:04 | XMS_ITS | Encounter Summary ---
Author Organization [facility] Care Team Providers Care Web Ui Designer Name Role Phone Art Randle MD Primary Care Prov ider Encounter Details Date Type Department Care Team (Latest Contact Info) Description 01/27/2016 Orders Only [facility] CLINCON[facility] ProviderAjit MD [address] [place] [address] Social History Tobacco Use Types Packs/Day Years Used Date Smoking Tobacco: Former Cigarettes Q uit: 04/23/1992 Alcohol Use Standard Drinks/Week Comments Yes 0 (1 standard drink = 0.6 oz pur e alcohol) Sex and Gender Information Value Date Recorded Sex Assigned at Not on file 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 Historical Provider Final Res ult * PROCEDURE - RESULT (01/20/2016 12:00 AM CDT) Narrative 01/20/2016 12:00 AM CDT Ordered by an unspecified provider. us Historical Provider MD Final Res ult documented in this encounter Visit Diagnoses Not on filedocumented in this encounter Care Teams Web Ui Designer Relationship Specialty Start Date End Date Art Randle MD [address] [place] [address] PCP - General 09/18/12 documented as of this encounter
--- OUTSIDE RECORDS SUMMARY | 2024-07-28 18:04 | XMS_ITS | Clinical Summary ---
Author Organization [facility] Address [address] [place] [address] Care Team Providers Care Rehabilitation Program Coordinator Name Role Phone Art Randle MD Primary [...] Precordial pain 09/18/2012 Overview (07/28/2016): PRECORDIAL PAIN Surgical History Surgery Date Site/Laterality Comments CARPAL TUNNEL RELEASE Surgery for Carpal Tunnel OTHER SURGICAL HISTORY Wrist fusion TONSILLECTOMY Tonsillectomy Family History Medical History Relation Name Comments Other Father 2 Mitral valve re pair 62 yo, no CAD; Hypertension Mother 2 Hypertension; Relation Name Status Comments Father 1 Alive Father 2 Mother 1 Alive Mother 2 Social History Tobacco Use Types Packs/Day Years Used Date Smoking Tobacco: Former Cigarettes Q uit: 04/23/1992 Alcohol Use Standard Drinks/Week Comments Yes 0 (1 standard drink = 0.6 oz pur e alcohol) Personal Safety Answer Date Recorded Getting School Help Needed Not on file 07/06 Sex and Gender Information Value Date Recorded Sex Assigned at Not on file 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
--- OUTSIDE RECORDS SUMMARY | 2024-07-28 18:04 | XMS_ITS | Encounter Summary ---
Author Organization [facility] Address [facility] [facility] [place] [address] Care Team Providers Care Local Telephone Operator Name Role Phone Art Randle MD Primary Care Provider + Art Randle MD Unavailable [phone] Romeo Nunes MD Unavailable [phone] Encounter Details Date Type Department Care Team (Late st Contact Info) Description 03/01/[address] [facility] Care DermPath Lab [address] [facility], [place] [address] Aylin Gómez MD [address] [facility] 3 [place] [address] Social History Tobacco Use Types Packs/Day Years Used Date Smoking Tobacco: Never Assessed Sex and Gender Information Value Date Recorded Sex Assigned at Male 06/07/2023 12:53 PM MANAGER INDUSTRIAL Gender Identity Not on file Sexual Orientation Not on file documented as of this encounter Plan of Treatment Not on file documented as of this encounter Procedures Procedure Name Priority Date/Time Associated Diagnosis Comments DERMATOPATH TECHNICAL REPORT Routine 02/27/2018 12:00 AM MANAGER INDUSTRIAL documented in this encounter Results * DERMATOPATH TECHNICAL REPORT (02/27/2018 12:00 AM MANAGER INDUSTRIAL) Case Report Dermatopathology Report Case: [id number] Authorizing Provider: Aylin Gómez MD Collected: 02/27/2018 12:00 AM Pathologist: Shirley Mack MD Received: 03/01/2018 07:02 AM Specimen: Skin, right jawline 8 6:17 PM MANAGER INDUSTRIAL DERMATOPATHOLOGY LABORATORY Clinical History Bx proven BCC. Check margins. Previous Bx: [id number]. 6:17 PM [facility] DERMATOPATHOLOGY LABORATORY Gross Description Specimen A: Received is one formalin filled container labeled with the patient's name and designated right jawline. The specimen consists of a non-oriented ellipse of skin measuring [id number]. The epidermal surface consists of a centrally located 10x5mm previous biopsy site. The margin is inked green. The 12 o'clock and 6 o'clock tips are submitted in cassette 1. The remainder of the ellipse is serially sectioned and submitted in cassettes 2-4. Jar 0. [facility] Dermatopathology Laboratory performed the technical component only. 8 6:17 PM [facility] DERMATOPATHOLOGY LABORATORY Embedded Images 6:17 PM [facility] DERMATOPATHOLOGY LABORATORY DISCLAIMER An external and internal positive and negative controls are appropriate for the histochemical, immunohistochemical and immunofluorescence stain(s) in this case (if any), except where stated explicitly. The performance characteristics of the stain(s) cited in this report were developed and its performance characteristic determined by the Dermatopathology Laboratory at [facility]. These tests need not be, and therefore are not, approved by the [place] Food and Drug Administration. The tests are used for clinical purposes. 6:17 PM [facility] DERMATOPATHOLOGY LABORATORY Pathology/Cytolog y TISSUE SPECIMEN FROM SKIN / Unknown 02/27/2018 03/01/2018 7:02 AM MANAGER INDUSTRIAL Aylin Gómez MD LAB - PATHOLOGY/CYT OLOGY ORDERABLES DERMATOPATHOLOGY LABORATORY [facility] - Department of Dermatology [facility] [facility], 5th Floor Lab B [address] [phone] documented in this encounter Visit Diagnoses Not on filedocumented in this encounter Care Teams Local Telephone Operator Relationship Specialty Start Date End Date Art Randle MD [address] [address] PCP - General 01/21/18 Art Randle MD [address] [facility] [address] [place] [address] Family Medicine 01/21/18 [place] [address] [facility] [address] [place] [address] Orthopedic Surgery 05/15/16 documented as of this encounter
--- OUTSIDE RECORDS SUMMARY | 2024-07-28 18:04 | XMS_ITS | Encounter Summary ---
Author Organization [facility] Address [facility] [facility] [place] [address] Care Team Providers Care Sales Training Representative Name Role Phone Art Randle MD Primary Care Provider + Art Randle MD Unavailable [phone] Romeo Nunes MD Unavailable [phone] Encounter Details Date Type Department Care Team (Late st Contact Info) Description 01/22/2018 Lab Requisition [facility] Care DermPath Lab [address] [facility], [place] [address] Aylin Gómez MD [address] [facility] [address] [place] [address] Social History Tobacco Use Types Packs/Day Years Used Date Smoking Tobacco: Never Assessed Sex and Gender Information Value Date Recorded Sex Assigned at Male 06/07/2023 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 Gender Identity Not on file Sexual Orientation Not on file documented as of this encounter Plan of Treatment Not on file documented as of this encounter Procedures Procedure Name Priority Date/Time Associated Diagnosis Comments DERMATOPATH TECHNICAL REPORT Routine 01/21/2018 12:00 AM CDT documented in this encounter Results * DERMATOPATH TECHNICAL REPORT (01/21/2018 12:00 AM CDT) Case Report Dermatopathology Report Case: [id number] Authorizing Provider: Aylin Gómez MD Collected: 01/21/2018 12:00 AM Pathologist: Brigitte [place] MD Received: 01/22/2018 07:01 AM Specimen: Skin, right jawline 8 12:52 PM CDT DERMATOPATHOLOGY LABORATORY Addendum 2 At the request of the diagnosing physician, the technical component for Deep-EP4 was performed by [facility] Dermatopathology Laboratory. 12:52 PM [facility] DERMATOPATHOLOGY LABORATORY Addendum electronically signed by Brigitte [place] MD on 01/30/2018 at 12:52 PM Addendum 1 At the request of the diagnosing physician, the technical component for Lenz Cytokeratin was performed by [facility] Dermatopathology Laboratory. 12:52 PM [facility] DERMATOPATHOLOGY LABORATORY Addendum electronically signed by Annelise Guerrero MD on 01/28/2018 at 10:11 AM Clinical History BCC. Irritated. Check margins. 12:52 PM [facility] DERMATOPATHOLOGY LABORATORY Gross Description Specimen A: Received is one formalin filled container labeled with the patient's name and designated right jawline. The specimen consists of a shave measuring 4c3m9hk. The margin is inked green. Jar 0. [facility] Dermatopathology Laboratory performed the technical component only. 12:52 PM [facility] DERMATOPATHOLOGY LABORATORY Embedded Images 12:52 PM [facility] DERMATOPATHOLOGY LABORATORY DISCLAIMER An external and internal positive and negative controls are appropriate for the histochemical, immunohistochemical and immunofluorescence stain(s) in this case (if any), except where stated explicitly. The performance characteristics of the stain(s) cited in this report were developed and its performance characteristic determined by the Dermatopathology Laboratory at [facility]. These tests need not be, and therefore are not, approved by the [place] Food and Drug Administration. The tests are used for clinical purposes. 12:52 PM [facility] DERMATOPATHOLOGY LABORATORY Pathology/Cytolog y TISSUE SPECIMEN FROM SKIN / Unknown 01/21/2018 01/22/2018 7:01 AM CDT Aylin Gómez MD LAB - PATHOLOGY/CYT OLOGY ORDERABLES DERMATOPATHOLOGY LABORATORY [facility] - Department of Dermatology [address] [facility], 5th Floor Lab [address] [place], [place] [address] [phone] documented in this encounter Visit Diagnoses Not on filedocumented in this encounter Care Teams Sales Training Representative Relationship Specialty Start Date End Date Art Randle MD [address] [address] PCP - General 01/21/18 Art Randle MD [address] [address] Family Medicine 01/21/18 [place] [address] [address] Orthopedic Surgery 05/15/16 documented as of this encounter
--- OUTSIDE RECORDS SUMMARY | 2024-07-28 18:19 | XMS_ITS ---
Author Name Art Randle Address [address] [facility] [address] [place] [address] Phone [phone] [facility] ice Address [address] [place] [address] Phone [phone] Care Team Providers Care Contact Lens Curve Grinder Name Role Phone Art Randle Unavailable Romeo Nunes Unavailable Functional Status Mental Status Allergies and Intolerances Encounters Medications Problems Reason for Referral
--- OUTSIDE RECORDS SUMMARY | 2024-07-28 18:19 | XMS_ITS ---
Author Name JerArt ventura Address [address] [facility] [address] [place] [address] Phone [phone] [facility] [employer] ice Address [address] [place] [address] Phone [phone] Care Team Providers Care Cut Off Saw Operator Metal Name Role Phone Art Randle Unavailable Romeo [...] * End Date: * Text: * Other joint terminal attack controller (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 therapy* Code: * Start Date: SunFeb 28 00:00:00 EST 2023 * End Date: * Text: * group home (current) use of aspirin* Code: * Start [...]
--- OUTSIDE RECORDS SUMMARY | 2024-07-28 18:19 | XMS_ITS | Clinical Summary ---
Author Organization [facility] Address [address] [place] [address] Care Team Providers Care Clinical Data Programmer Name Role Phone Art Randle MD Primary Care Provider [phone] Allergies No known active allergies Medications acetaminophen CR 650 MG Tab CR 8 hr tablet Rx: Tylenol Arthritis Pain Active dutasteride 0.5 MG capsule Take 0.5 mg by mouth daily. 0 Active rosuvastatin 10 MG tablet Take 10 mg by mouth daily. 1 Active zolpidem CR 12.5 MG tablet 1 Active meloxicam (MOBIC) 15 MG tabletIndication s:Right knee pain, unspecified chronicity TAKE 1 TABLET BY MOUTH EVERY DAY 30 tablet 3 Active Active Problems Problem Noted Date Diagnosed Date Acute medial meniscal tear, right, initial encou nter 11/04/2020 Assessment & Plan (11/04/2020 6:14 PM CDT): We discussed the risks, benefits and alternatives. [...] MRI Patient would like to avoid steroids Primary osteoarthritis of right knee 11/04/2020 Assessment & Plan (11/04/2020 6:15 PM CDT): We discussed the risks, benefits and alternatives. The only thing proven to slow the progression of osteoarthritis is weight loss. Every pound lost relieves 4 to 6 pounds of stress across the knee. We discussed unloading braces. Formal physical therapy to help with flexibility, mobility and strength. We discussed TENS units. Nonsteroidal anti-inflammatories as well as Tylenol and pain medication and their side effects. We discussed steroid versus Visco supplement injection. We discussed eventual total knee arthroplasty. Family History Medical History Relation Comments Cancer Father AAA Mother Relation Status Comments Father Mother Social History Tobacco Use Types Packs/Day Years Used Date Smoking Tobacco: Former Smokeless Tobacco: Never Sex and Gender Information Value Date Recorded Sex Assigned at Not on file Legal Sex Male 12:17 PM CDT Gender Identity Not on file Sexual Orientation Not on file Last Filed Vital Signs Vital Sign Reading Time Taken Comments Blood Pressure 138/70 11/02/2020 2:21 PM CDT Pulse 65 11/02/2020 2:21 PM CDT Temperature 36.3 C (97.3 F) 11/02/2020 2:21 PM CDT Respiratory Rate 16 11/02/2020 2:21 PM CDT Oxygen Saturation 99% 11/02/2020 2:21 PM CDT Inhaled Oxygen Concentration - - Weight 89.4 kg (197 lb) 11/02/2020 2:21 PM CDT Height - - Body Mass Index - - Plan of Treatment Health Maintenance Due Date Last Done Comments Colorectal Cancer Screening Colonoscopy (10 Years) 1955 Hepatitis C 01/11/1972 DTaP, Tdap and Td Vaccines ( 1 - Tdap) 1973 Zoster Vaccines (1 of 2) 01/11/2004 Annual Medicare Wellness Visit 2019 Pneumococcal Vaccine: 65+ Years (2 of 2 - PPSV23 or PCV20) 12/21/2020 12/22/2019 COVID-19 Vaccine (3 - 2023-2 5 season) 2023 07/02/2020, 06/04/2020 RSV Immunization or 60+ Years (1 - 1-dose 75+ series) 2029 Meningococcal B Vaccine Aged Out No l onger eligible based on patient's age to complete this topic Meningococcal Vaccine Aged Out No wenceslao angélica eligible based on patient's age to complete this topic RSV Immunizations Under 20 Months Aged Out No longer eligible b ased on patient's age to complete this topic Insurance MEDICARE [employer] Care Teams Clinical Data Programmer Relationship Specialty Start Date End Date Art Randle MD [address] [address] PCP - General FAMILY PRACTICE 10/13/20
--- OUTSIDE RECORDS SUMMARY | 2024-07-28 18:19 | XMS_ITS | Continuity of Care Document ---
Author Organization [facility] Address [address] [place] [address] Phone Care Team Providers Care Inventory And Pricing Associate Name Role Phone Ashby OD, Obed Unavailable Unavailable Procedures Procedure Date Eye Exam & Treatment Refraction Advance Directives Directive Yes / No Effective Date File Name No Information Encounters Encounter Description Practice Location Reason(s) For Visit Diagnoses Date Provider Providers Copied on Encounter [facility], [id number] [place] [address] [address], [place], [place], [id number], [place] tel:[phone] [facility] ([facility]) No Information 2-200 9 Ashby OD Obed. [address] , [address], [place], [address], [place]. tel:[phone] Family History Family Member Type Diagnosis Age At Onset No Information Payers Payer name Insurance type Covered alliance party ID Authoriza tion(s) [employer] [place] Out Of [place] [id number] Social History Type Description Quantity Date Captured [...]
[2024-07-28 18:20] VITALS: BP 150/78; PULSE 84; RESP 16; TEMP 36.6; O2SAT 100
== END 2024-07-28 18:20 | disposition home or self-care (01) ==
PROVIDERS: Emergency Provider Emergency Medicine; PCP Family Medicine Adolescent Medicine
DX: S01.112A Laceration without foreign body of left eyelid and periocular area, initial encounter (principal); Z23 Encounter for immunization; Z87.891 Personal history of nicotine dependence; W18.09XA Striking against other object with subsequent fall, initial encounter
CPT/HCPCS: 12011; 70450; 90471; 90715; 99284; J2004